=== PATIENT | female | born 1980 | race Caucasian/White ===

== ENCOUNTER 2023-08-05 09:40 | Emergency (ER) | payer SELFPAY ==
[~2023-08-05] VITALS: Ht 162.6 cm; Wt 65.0 kg
[2023-08-05 09:52] VITALS: O2SAT 98
[2023-08-05] MEDS ORDERED: ACETAMINOPHEN 325MG TABLET PO ONE (10:15)
[2023-08-05] MEDS ORDERED: METHOCARBAMOL 500MG TABLET PO ONE (10:15)
[2023-08-05] MEDS ORDERED: METH-653 MT (11:03)
[2023-08-05 11:30] VITALS: BP 121/76; PULSE 60; RESP 20; TEMP 98.4
== END 2023-08-05 11:32 | disposition home or self-care (01) ==
LOC: ER 10:25
DX: S83.92XA Sprain of unspecified site of left knee, initial encounter (principal); S83.91XA Sprain of unspecified site of right knee, initial encounter; S50.11XA Contusion of right forearm, initial encounter; J45.909 Unspecified asthma, uncomplicated; V89.2XXA Person injured in unspecified motor-vehicle accident, traffic, initial encounter; Y93.89 Activity, other specified; Y92.89 Other specified places as the place of occurrence of the external cause; Y99.8 Other external cause status
CPT/HCPCS: 81025; 73090; 73560; 99284; Z7610